=== PATIENT | male | born 1990 | race Two or more races ===

== ENCOUNTER 2018-01-27 10:54 | Emergency (ER) | payer BC ==
[2018-01-27 11:10] VITALS: BP 136/86
--- NOTE | 2018-01-27 11:52 | RAD ---
Indication: Pain around the arch of the LEFT foot following injury. Associated swelling. Comparison: No relevant prior exams available on the [facility] for comparison. Technique: AP, lateral, and oblique views LEFT foot. Report: Mild diastases between the medial cuneiform and the base of the second metatarsal consistent with midfoot sprain. Evidence for nondisplaced fractures at the bases of the second and fourth metatarsals. Significant soft tissue swelling about the mid and forefoot. IMPRESSION: Lisfranc injury with mild diastases between the medial cuneiform and base of the second metatarsal highly suspicious for Lisfranc ligament tear and nondisplaced fractures at the base of the second and fourth metatarsals.
--- NOTE | 2018-01-27 12:31 | UC ---
Medina Jorge Gabriel, scribed for [facility] MD on 01/27/18 at 1124 . Lower Extremity/Ankle HPI - HPI Summary HPI Summary: This patient is a 27 year old M presenting to [facility] [place] s/p left foot injury that occurred at 1900 while skateboarding yesterday. The patient rates the pain 0/10 in severity. Patient reports redness and swelling. Patient denies ankle pain and prior injury. Pt is able to ambulate if he walks on just his heal. MD note: Vital signs stable. BP 138/86. Not on antihypertensive med. Visit history is noncontributory. Nurses note: Injured L foot yesterday while skateboarding .Denies any ankle or leg pain. - History of Current Complaint Chief Complaint: UCLowerExtremity Stated Complaint: FOOT INJURY Time Seen by Provider: 01/27/18 11:22 Hx Obtained From: Patient Onset/Duration: Lasting Days, Still Present Severity Initially: Mild Severity Currently: Mild Pain Intensity: 0 Pain Scale Used: 0-10 Numeric - Allergies/Home Medications Allergies/Adverse Reactions: Allergies Allergy/AdvReac Type Severity Reaction Status Date / Time Iodinated Contrast- Oral and Allergy Rash Verified 01/27/18 11:03 IV Dye Home Medications: Home Medications Ibuprofen [Advil] 200 mg PO Q8HR PRN 01/27/18 [History Confirmed 01/27/18] PARoxetine HCl [Paroxetine HCl] 20 mg PO DAILY 01/27/18 [History Confirmed 01/27] Topiramate TAB(*) [Topamax 25 MG tab] 25 mg PO BID 01/27/18 [History Confirmed 01/27/18] PMH/Surg Hx/FS Hx/Imm Hx Previously Healthy: Yes Other History Of: Negative For: Hepatitis C, Anticoagulant Therapy - Surgical History Surgical History: Yes Surgery Procedure, Year, and Place: L arm surgery 2005 - Family History Known Family History: Negative: Cardiac Disease, Hypertension, Diabetes, Renal Disease, Respiratory Disease, Seizure Disorder, Blood Disorder - Social History Occupation: Student Alcohol Use: Weekly Substance Use Type: Marijuana Smoking Status (MU): Never Smoked Tobacco Review of Systems Skin: Other - REDNESS AND SWELLING Musculoskeletal: Other: - LLE PAIN All Other Systems Reviewed And Are Negative: Yes - Comments Additional Review of Systems Comments: POSITIVE: LEFT FOOT PAIN, SWELLING, AND REDNESS. NEGATIVE: ANKLE PAIN AND PRIOR INJURY Physical Exam - Summary Physical Exam Summary: Appearance: The patient is well-appearing, is in no pain distress, and is well- nourished. Eyes: Conjunctiva are clear. ENT: The hearing is grossly normal, the pharynx is normal, and the TMs are normal. There is no muffled or hoarse voice. Neck: The neck is supple and there is no lymphadenopathy. Respiratory: The chest is nontender. The lungs are clear, there are normal breath sounds, and there is no respiratory distress. Cardiovascular: Heart is regular rate and rhythm. There is no murmur. Abdomen: The abdomen is soft and nontender. There is no organomegaly. Bowel sounds: present Musculoskeletal: Strength is intact. The patient moves all extremities. LLE SHOWS NO PAIN OR TENDERNESS AT KNEE OR ANKLE, THE ACHILLES TENDON IS INTACT, THERE IS DIFFUSE SWELLING OVER THE DORSUM WITH ERYTHEMA EXTENDING FROM THE BASE OF THE TOES TO THE ANKLE. AT THE BASE OF THE TOES PARTICULARLY AT 2,3, AND 4 THERE IS ECCYHMOSIS. THERE IS ECCHYMOSIS OF THE MID FOOT ON THE VOLAR ASPECT APPROXIMATELY 2.5CM, MINIMAL DISCOMFORT OVER DORSUM OF THE FOOT AND WITH INTERNAL ROTATION Neurological: The patient is alert. Psychological: The patient displays age appropriate behavior Skin: Negative for rashes. Triage Information Reviewed: Yes Vital Signs: Initial Vital Signs Temp 98.5 F 01/27/18 11:02 Pulse 94 01/27/18 11:02 Resp 18 01/27/18 11:02 BP 136/86 01/27/18 11:02 Pulse Ox 99 01/27/18 11:02 Vital Signs Reviewed: Yes Diagnostics - Radiology Foot Xray Radiology Interpretation Completed By: Radiologist - Lisfranc injury with mild diastases between the medial cuneiform and base of the second metatarsal highly suspicious for Lisfranc ligament tear and nondisplaced fractures at the base of the second and fourth metatarsals. Dr. Dominguez has reviewed this report. Lower Extremity Course/Dx - Course Course Of Treatment: The xray is consistent with a lisfranc fracture. The foot has been immobilized and he is non weight bearing he has been instructed to follow up with ortho tomorrow. Unfortunately he is leaving for [facility] in 3 days and has been given a copy of his xrays and may need to follow up there. Medications have been included in the original chart and reviewed. Patient is Urgent/Emergent. BP elevated due to current condition w/o HTN in past medical history. - Differential Dx/Diagnosis Differential Diagnosis/HQI/PQRI: Fracture (Closed), Sprain Provider Diagnoses: Lisfranc fracture left foot Discharge - Sign-Out/Discharge Documenting (check all that apply): Discharge/Admit/Transfer - Discharge Plan Condition: Stable Disposition: HOME Patient Education Materials: Foot Fracture in Adults (ED) Referrals: Nella Lynch MD [Primary Care Provider] - Richar Landers MD [Medical Doctor] - Additional Instructions: Your blood pressure reading today was 136/86, indicating HYPERTENSION/ PREHYPERTENSION. Follow-up with your primary care provider within 4 weeks for blood pressure readings and further evaluation. PLEASE SEEK CARE AT THE EMERGENCY DEPARTMENT IF SYMPTOMS WORSEN OR IF NEW SYMPTOMS DEVELOP. WE DISCUSSED: 1. You have a broken bones in your foot. 2. Use crutches and splint. Continue non-weight bearing. You have a foot injury that requires orthopedic, specialist follow up. 3. Call orthopedics for follow up tomorrow. 4. We have given you a copy of your x ray. 5. Call tomorrow or any time with any questions or concerns. - Billing Disposition and Condition Condition: STABLE Disposition: HOME The documentation as recorded by the Medina knowles Gabriel accurately reflects the service I personally performed and the decisions made by me, Sam Dominguez MD.
== END 2018-01-27 12:35 | disposition home or self-care (01) ==
LOC: UCEAST 10:54
DX: S93.322A Subluxation of tarsometatarsal joint of left foot, initial encounter (principal); X58.XXXA Exposure to other specified factors, initial encounter; Y93.51 Activity, roller skating (inline) and skateboarding; Y92.9 Unspecified place or not applicable; Z91.041 Radiographic dye allergy status
CPT/HCPCS: 99203; G0463

== ENCOUNTER → 2018-02-07 06:59 | Day surgery (SDC) | payer BC ==
[~2018-02-07 06:59] MED LIST: Buffered Lidocaine 0.9% SYRIN* 5 ML/SYR SYRINGE INTRADERM ONE; Bupivacaine 0.25% SDV* 30 ML ONE; Chloroprocaine 2%* 20 ML VIAL ONE; Dexamethasone TAB* 4 MG ONE; Dexamethasone TAB* 4 MG PO ONE; DiMENhydriNATE IV* 50 MG/ML VIAL IV PUSH PRN; Ketorolac INJ* 30 MG/ML 1 ML VIAL ONE; Midazolam* 1 MG/ML 10 ML VIAL (10 MG) ONE; Morphine INJ* 2 MG/ML 1 ML CARPUJECT IV PRN; Naloxone* 0.4 MG/ML 1 ML VIAL IV PRN; Ondansetron INJ* 2 MG/ML VIAL ONE; Ondansetron ODT TAB* 4 MG ONE; PROCHLORPERAZINE INJ 5 MG/ML 2 ML VIAL IV PRN; Propofol* 500 MG/50 ML BTL ONE; Scopolamine 1.5 mg* PATCH TRANSDERM PRN; Scopolamine PATCH Remove* 1 NOTE MISC PATCH OFF ONE; ceFAZolin 2 GM PREMIX (*) 2 GM/50 ML BAG IVPB ONE; fentaNYL* 50 MCG/ML 2 ML VIAL (100 MCG VIAL) IV PRN; fentaNYL* 50 MCG/ML 2 ML VIAL (100 MCG VIAL) ONE; oxyCODONE/Acetamin 5/325 MG* TAB PO PRN
--- NOTE | 2018-02-07 10:12 | OP ---
Operative Report - Blank - Operative Report Date of Operation: 02/07/18 Note: PATIENT: Fritz Irving DATE OF : 1990 DATE OF SURGERY: 02/07/2018 SURGEON: Tuan Landers MD SOCIAL SERVICES DESIGNEE: LAURO Nicholson, whos assistance was necessary for positioning, retraction, help with instrumentation, and closure. ANESTHESIOLOGIST: Dr. Smith PREOPERATIVE DIAGNOSIS: Left foot Lisfranc injury with 2nd TMT joint dislocation , 2nd, 3rd and 4th metatarsal fractures, and lateral cuneiform fracture. POSTOPERATIVE DIAGNOSIS: Left foot Lisfranc injury with 2nd TMT joint dislocation, 2nd, 3rd and 4th metatarsal fractures, and lateral cuneiform fracture. OPERATION: Left foot open reduction and internal fixation of the 2nd TMT and Lisfranc joints. Left foot open reduction and internal fixation of the 2nd metatarsal base fracture. Left foot closed treatment of 3rd metatarsal, 4th metatarsal and lateral cuneiform fractures. ANESTHESIA: Spinal + regional nerve block IMPLANTS: Arthrex 4.0mm cannulated screw TOURNIQUET TIME: Less than 1 hour with a well padded thigh tourniquet at 250 mmHg SPECIMENS: none ESTIMATED BLOOD LOSS: minimal COMPLICATIONS: none STATUS: Stable from the operating room to the recovery room and then home. INDICATIONS FOR PROCEDURE: Fritz sustained an unstable left foot Lisfranc injury. Both operative and non operative treatment alternatives were reviewed. Further, the nature and risks of surgery were reviewed in careful detail, in the office as well as the pre- operative holding area. Our discussions regarding the risks of surgery included , but were not limited to, infection, wound problems, nerve injury, neuroma, RSD , persistent symptoms, blood clot, fracture, post-traumatic arthritis, hardware pain, need for further surgery, malunion, nonunion, persistent midfoot instability, failure of the surgery, and even the remote chance of catastrophic complication, including loss of limb. DESCRIPTION OF PROCEDURE: The patient was seen in the preoperative holding unit and informed written consent was obtained. The appropriate extremity was marked. The patient was then brought to the operating room and carefully positioned on the operating room table. Anesthesia was induced. All bony prominences were padded with great care. A well-padded thigh tourniquet was placed. A chlorhexidine based pre- scrub was performed followed by a chloraprep prep and drape in standard sterile fashion. A surgical safety pause was then conducted in which we confirmed the appropriate patient, extremity, planned procedure, availability of equipment, indication and administration of prophylactic antibiotics, and DVT prophylaxis in the form of a compression boot on the non-surgical extremity. We began by performing an Esmarch exsanguination of the limb and inflated the tourniquet to 250 mmHg. I utilized a longitudinal incision centered at the base of the first and second metatarsals. I carefully dissected down through the soft tissues with great care taken to protect the superficial and deep neurovascular structures. The deep neurovascular bundle was visualized and carefully protected throughout the procedure. I then exposed the first and second tarsometatarsal joints. The first TMT joint and intercuneiform joint were stable and intact. The 2nd TMT joint and Lisfranc joint were grossly disrupted, unstable and subuluxated. I also exposed the fracture at the base of the 2nd metatarsal and cleaned out the fracture hematoma. This resulted in a nice visualization of the joints. The 2 nd TMT joint was carefully inspected and given the lack of comminution of the articular surface, I elected not to proceed with a primary fusion, and instead perform an ORIF as we had discussed preoperatively. The 2nd metatarsal fracture was reduced provisionally with a dental pick and then a large pointed reduction clamp was used to reduce the second TMT joint and Lisfranc joint complex. A separate incision was made medially and a guidewire for a 4.0 mm cannulated screw was driven from the medial cuneiform through the base of the second metatarsal under fluoroscopic guidance. This was measured and then overdrilled with a cannulated drill. A 30mm 4.0 mm cannulated screw was then placed over the guidewire. The pointed reduction clamp was then removed and the joints and fracture were held well reduced by the hardware. Fluoroscopy was again used to confirm this. The 1st TMT and intercuneiform joints were again directly visualized and stressed and were well-reduced and stable. Fluoroscopy was then used to image the 3rd metatarsal, 4th metatarsal and lateral cuneiform fractures , which appeared well reduced and without any correlated joint instability. Therefore, I decided to treat the 3rd metatarsal, 4th metatarsal and lateral cuneiform fractures in a closed manner. Final fluoroscopic images were obtained. At this point, we irrigated copiously and then closed in layers meticulously utilizing 3-0 Monocryl and 3-0 nylon for the skin. A sterile dressing was then applied followed by a splint with the ankle in a neutral position. The patient was then awakened from anesthesia and transferred to the recovery room in stable condition. There were no complications. All needle and sponge counts were correct at the end of the case. ATTESTATION: I attest I was present and scrubbed and performed the critical portions of the procedure myself. POSTOPERATIVE PLAN: Follow up will be in 2 weeks for likely suture removal and postop x-rays. The postoperative plan is to be [id number] for 2 months , then weight-bearing as tolerated in a boot between months 2-3, and then into regular shoes at 3 months postop.
[2018-02-07 10:40] VITALS: BP 130/89
--- NOTE | 2018-02-11 10:02 | RAD ---
INDICATION: Left foot Lisfranc injury, open reduction. COMPARISON: Comparison is made with prior x-ray studies of the feet from January 28, 2018. TECHNIQUE: 36.95 seconds of intermittent fluoroscopic guidance were provided and 4 spot films of the left foot were obtained in the operating room. FINDINGS: The films demonstrate placement of a single surgical screw spanning through the medial cuneiform and base of the second metatarsal. IMPRESSION: INTRAOPERATIVE CONTROL FILMS. CPT II Codes: G9500
== END | disposition home or self-care (01) ==
LOC: OR 06:59
PROVIDERS: ATTEND Orthopaedic Surgery
DX: S93.325A Dislocation of tarsometatarsal joint of left foot, initial encounter (principal); S92.322A Displaced fracture of second metatarsal bone, left foot, initial encounter for closed fracture; S92.342A Displaced fracture of fourth metatarsal bone, left foot, initial encounter for closed fracture; S92.332A Displaced fracture of third metatarsal bone, left foot, initial encounter for closed fracture; F41.8 Other specified anxiety disorders; I10 Essential (primary) hypertension; V00.138A Other skateboard accident, initial encounter; Y93.51 Activity, roller skating (inline) and skateboarding; Y92.9 Unspecified place or not applicable
CPT/HCPCS: 76001; A9270-GY; C1713; C1776; J0690; J1885; J2250; J2400; J2704; J3010; J8540

== ENCOUNTER 2018-06-20 06:18 | Day surgery (SDC) | payer BC ==
[~2018-06-20 06:18] MED LIST changes: -Bupivacaine 0.25% SDV* 30 ML ONE; -Chloroprocaine 2%* 20 ML VIAL ONE; -Dexamethasone TAB* 4 MG ONE; -Dexamethasone TAB* 4 MG PO ONE; -DiMENhydriNATE IV* 50 MG/ML VIAL IV PUSH PRN; +Famotidine IV* 10 MG/ML 2 ML (20 mg) IV ONE; -Ketorolac INJ* 30 MG/ML 1 ML VIAL ONE; -Midazolam* 1 MG/ML 10 ML VIAL (10 MG) ONE; -Morphine INJ* 2 MG/ML 1 ML CARPUJECT IV PRN; -Naloxone* 0.4 MG/ML 1 ML VIAL IV PRN; -Ondansetron INJ* 2 MG/ML VIAL ONE; -Ondansetron ODT TAB* 4 MG ONE; -PROCHLORPERAZINE INJ 5 MG/ML 2 ML VIAL IV PRN; -Propofol* 500 MG/50 ML BTL ONE; -Scopolamine 1.5 mg* PATCH TRANSDERM PRN; -Scopolamine PATCH Remove* 1 NOTE MISC PATCH OFF ONE; -ceFAZolin 2 GM PREMIX (*) 2 GM/50 ML BAG IVPB ONE; -fentaNYL* 50 MCG/ML 2 ML VIAL (100 MCG VIAL) IV PRN; -fentaNYL* 50 MCG/ML 2 ML VIAL (100 MCG VIAL) ONE; -oxyCODONE/Acetamin 5/325 MG* TAB PO PRN
[2018-06-20] MEDS ORDERED: ceFAZolin 2 GM PREMIX in ORs 2 GM/50 ML BAG IVPB ONE (06:45)
[2018-06-20] MEDS ORDERED: Famotidine IV* 10 MG/ML 2 ML (20 mg) ONE (06:45)
[2018-06-20] MEDS ORDERED: Bupivacaine 0.5% SDV PF* 30ML VIAL ONE (06:57)
[2018-06-20] MEDS ORDERED: Midazolam* 1 MG/ML 5 ML VIAL (5 MG) ONE (07:28)
[2018-06-20] MEDS ORDERED: fentaNYL* 50 MCG/ML 2 ML VIAL (100 MCG VIAL) ONE (07:28)
[2018-06-20] MEDS ORDERED: Ondansetron INJ* 2 MG/ML VIAL ONE (07:43)
[2018-06-20] MEDS ORDERED: Ketorolac INJ* 30 MG/ML 1 ML VIAL ONE (07:43)
[2018-06-20] MEDS ORDERED: Propofol* 10 MG/ML 20 ML BTL IV PUSH ONE (07:43)
[2018-06-20] MEDS ORDERED: Dexamethasone IV* 4 MG/ML 1 ML (4 MG) ONE (07:43)
[2018-06-20] MEDS ORDERED: DiMENhydriNATE IV* 50 MG/ML VIAL IV PUSH PRN (08:06)
[2018-06-20] MEDS ORDERED: Acetaminophen TAB* 325 MG PO PRN (08:06)
[2018-06-20] MEDS ORDERED: oxyCODONE TAB* 5 MG TAB PO PRN (08:06)
[2018-06-20] MEDS ORDERED: HYDROmorphone INJ1* 1 MG/ML SYRINGE IV PRN (08:06)
[2018-06-20] MEDS ORDERED: Naloxone* 0.4 MG/ML 1 ML VIAL IV PRN (08:06)
--- NOTE | 2018-06-20 08:27 | OP ---
Operative Report - Blank - Operative Report Date of Operation: 06/20/18 Note: PATIENT: Fritz Irving DATE OF : 1990 DATE OF SURGERY: 06/20/2018 SURGEON: Tuan Landers MD TICKER WIRER: LAURO Nicholson, whos assistance was necessary for positioning, retraction, help with instrumentation, and closure. ANESTHESIOLOGIST: Dr. Jackson PREOPERATIVE DIAGNOSIS: Left foot painful retained hardware POSTOPERATIVE DIAGNOSIS: Left foot painful retained hardware OPERATION: 1. Left foot, removal of implants, deep. 2. Stress fluoroscopy performed by surgeon under anesthesia. ANESTHESIA: LMA IMPLANTS: Removed 4.0mm cannulated screw TOURNIQUET TIME: Less than 1 hour with an ankle Esmarch tourniquet SPECIMENS: none ESTIMATED BLOOD LOSS: minimal COMPLICATIONS: none STATUS: Stable from the operating room to the recovery room and then home. INDICATIONS FOR PROCEDURE: Fritz had a prior lisfranc injury and ORIF with retained hardware. Both operative and non operative treatment alternatives were reviewed. Further, the nature and risks of surgery were reviewed in careful detail, in the office as well as the pre-operative holding area. Our discussions regarding the risks of surgery included, but were not limited to, infection, wound problems, nerve injury, neuroma, RSD, persistent symptoms, blood clot, midfoot instability, need for further surgery, post-traumatic arthritis, failure of the surgery, and even the remote chance of catastrophic complication, including loss of limb. DESCRIPTION OF PROCEDURE: The patient was seen in the preoperative holding unit and informed written consent was obtained. The appropriate extremity was marked. The patient was then brought to the operating room and carefully positioned on the operating room table. Anesthesia was induced. All bony prominences were padded with great care. A chlorhexidine based pre-scrub was performed followed by a chloraprep prep and drape in standard sterile fashion. A surgical safety pause was then conducted in which we confirmed the appropriate patient, extremity, planned procedure, availability of equipment, indication and administration of prophylactic antibiotics, and DVT prophylaxis in the form of a compression boot on the non-surgical extremity. We began by placing an ankle Esmarch tourniquet. I injected local anesthetic to the area of the prior surgical incision. I utilized the prior medial foot incision. I utilized a small K wire to find the cannulated screw with the assistance of fluoroscopy. Once localized, I utilized blunt dissection down to the level of the hardware. I then utilized a scalpel to sharply expose the screw head. I then removed the screw utilizing a screwdriver without difficulty. I performed an external rotation and abduction stress fluoroscopic examination. No instability was appreciated at the Lisfranc articulation. At this point, we irrigated copiously and then closed in layers meticulously utilizing 3-0 Monocryl and 3-0 nylon for the skin. A sterile dressing was then applied. The patient was then awakened from anesthesia and transferred to the recovery room in stable condition. There were no complications. All needle and sponge counts were correct at the end of the case. ATTESTATION: I attest I was present and scrubbed and performed the critical portions of the procedure myself. POSTOPERATIVE PLAN: The plan is to remove the sutures in 2 weeks.
[2018-06-20 09:09] VITALS: BP 113/68
[2018-06-20] MEDS ORDERED: Morphine VIAL* 10 MG/ML 1 ML VIAL ONE (09:50)
--- NOTE | 2018-06-21 16:13 | RAD ---
INDICATION: Removal of hardware left foot. COMPARISON: Comparison is made with a prior x-ray study of the left foot from May 20, 2018. TECHNIQUE: 13 seconds of intermittent fluoroscopic guidance were provided and 2 spot films of the left foot were obtained in the operating room. FINDINGS: There has been removal of the surgical screw spanning the medial cuneiform bone and base of the second metatarsal. IMPRESSION: INTRAOPERATIVE CONTROL FILMS. CPT II Codes: G9500
== END 2018-06-20 09:22 | disposition home or self-care (01) ==
LOC: OR 06:18
PROVIDERS: ATTEND Orthopaedic Surgery
DX: T84.84XA Pain due to internal orthopedic prosthetic devices, implants and grafts, initial encounter (principal); Y83.1 Surgical operation with implant of artificial internal device as the cause of abnormal reaction of the patient, or of later complication, without mention of misadventure at the time of the procedure; S93.325D Dislocation of tarsometatarsal joint of left foot, subsequent encounter; V00.131D Fall from skateboard, subsequent encounter; Y92.9 Unspecified place or not applicable; I10 Essential (primary) hypertension; G47.33 Obstructive sleep apnea (adult) (pediatric); F41.8 Other specified anxiety disorders
CPT/HCPCS: 76000; 88300; J0690; J1100; J1885; J2250; J2270; J2405; J2704; J3010